=== PATIENT | female | born 1930 | race Native Hawaiian/Other Pacific Islander ===

== ENCOUNTER 2017-02-17 13:11 | Outpatient (CLI) | payer OTHER ==
[2017-02-17 14:31] LABS: POTASSIUM 4.5 mmol/L (3.6-5.2)
== END 2017-02-17 14:30 | disposition home or self-care (01) ==
LOC: LABW 13:11
PROVIDERS: Internal Medicine Cardiovascular Disease
DX: I50.9 Heart failure, unspecified (principal); Z79.899 Other long term (current) drug therapy; Z51.81 Encounter for therapeutic drug level monitoring
CPT/HCPCS: 36415; 80048; 80162; 83880; 84443

== ENCOUNTER 2017-09-28 11:21 | Outpatient (CLI) | payer OTHER ==
[2017-09-28 11:40] LABS: PLATELET COUNT 183 K/uL (152-353)
[2017-09-28 12:56] LABS: POTASSIUM 5.1 mmol/L (3.6-5.2)
== END 2017-09-28 19:08 | disposition home or self-care (01) ==
LOC: LABW 11:21
PROVIDERS: Internal Medicine
DX: N18.3 Chronic kidney disease, stage 3 (moderate) (principal)
CPT/HCPCS: 36415; 80053; 83735; 84100; 85027

== ENCOUNTER 2018-03-21 12:08 | Outpatient (CLI) | payer OTHER ==
[2018-03-21 12:39] LABS: POTASSIUM 3.6 mmol/L (3.6-5.2)
== END 2018-03-21 19:49 | disposition home or self-care (01) ==
LOC: LABW 12:08
DX: R79.89 Other specified abnormal findings of blood chemistry (principal)
CPT/HCPCS: 36415; 80053

== ENCOUNTER 2018-04-27 10:36 | Outpatient (CLI) | payer OTHER ==
[2018-04-27 11:21] LABS: PLATELET COUNT 169 K/uL (152-353)
[2018-04-27 12:43] LABS: POTASSIUM 4.3 mmol/L (3.6-5.2)
== END 2018-04-27 22:18 | disposition home or self-care (01) ==
LOC: LABW 10:36
PROVIDERS: Internal Medicine
DX: N18.3 Chronic kidney disease, stage 3 (moderate) (principal); R82.99 Other abnormal findings in urine
CPT/HCPCS: 36415; 80053; 81000; 82043; 82306; 82570; 82652; 82746; 83735; 83935; 83970; 84100; 84155; 85027; 87077; 87086; 87088; 87186

== ENCOUNTER 2018-11-15 12:18 | Outpatient (CLI) | payer OTHER ==
[2018-11-15 12:34] LABS: PLATELET COUNT 145 K/uL (152-353)
[2018-11-15 13:21] LABS: POTASSIUM 5.3 mmol/L (3.6-5.2)
== END 2018-11-15 19:28 | disposition home or self-care (01) ==
LOC: LABW 12:18
PROVIDERS: Internal Medicine
DX: N18.4 Chronic kidney disease, stage 4 (severe) (principal)
CPT/HCPCS: 36415; 80053; 81000; 83735; 85027